=== PATIENT | female | born 1940 | race Caucasian/White ===

== ENCOUNTER → 2018-04-27 | Outpatient (CLI) | payer OTHER ==
[~2018-04-27] MED LIST: AGGRENOX CAPSU1 EACH PO; CYMBALTA PO; FISHOIL PO; HYDROCODONE-AP1 EA11 PO; LEVOXYL50 MCG PO; MOBIC OR; MOBIC15 MG PO; NEXIUM PO; NORVASC10 MG PO; PRAVACHOL PO; PRAVACHOL40 MG PO; SINGULAIR 10 MG10 M1 PO; TRAMADOL 50 MG50 MG PO; TRICOR PO; TRICOR145 MG PO; XANAX 0.25 MG0.25 MG PO
[2018-04-27 12:10] VITALS: BP 136/49
[2018-04-27 12:55] VITALS: BP 136/49
== END ==
LOC: OPONC 11:06
DX: N39.0 Urinary tract infection, site not specified (principal); B96.5 Pseudomonas (aeruginosa) (mallei) (pseudomallei) as the cause of diseases classified elsewhere; I12.9 Hypertensive chronic kidney disease with stage 1 through stage 4 chronic kidney disease, or unspecified chronic kidney disease; N18.3 Chronic kidney disease, stage 3 (moderate); K21.9 Gastro-esophageal reflux disease without esophagitis; M19.90 Unspecified osteoarthritis, unspecified site; F41.8 Other specified anxiety disorders; Z86.73 Personal history of transient ischemic attack (TIA), and cerebral infarction without residual deficits
CPT/HCPCS: 27000; 95000